=== PATIENT | female | born 1980 | race Hispanic/Latino ===

== ENCOUNTER 2019-09-04 13:54 | Emergency (ER) | payer OTHER ==
[2019-09-06 13:51] LABS: SARS-CoV-2 MS2 Positive; SARS-CoV-2 N Gene Positive; SARS-CoV-2 S Gene Positive; SARS-CoV-2 orf1ab Positive
== END 2019-09-04 14:50 | disposition home or self-care (01) ==
LOC: NAV ERS 13:54
DX: U07.1 COVID-19 (principal); J02.9 Acute pharyngitis, unspecified; R11.0 Nausea; F32.9 Major depressive disorder, single episode, unspecified; F90.9 Attention-deficit hyperactivity disorder, unspecified type; Z79.899 Other long term (current) drug therapy
CPT/HCPCS: 87081; 87430; 87635; 99283; U0003